=== PATIENT | male | born 1940 | race Two or more races ===

== ENCOUNTER 2022-03-28 16:13 | Inpatient (IN) | payer OTHER ==
[~2022-03-28] VITALS: Ht 175.3 cm; Wt 83.9 kg
[2022-03-28] MEDS ORDERED: CARVEDILOL6.25 MG PO (17:09)
[2022-03-28] MEDS ORDERED: JANUMET 50-1,01 EACH PO ×2 (17:10→17:13)
[2022-03-28] MEDS ORDERED: ZETIA10 MG PO (17:11)
[2022-03-28] MEDS ORDERED: JARDIANCE10 MG PO (17:12)
[2022-03-28] MEDS ORDERED: LEXAPRO5 MG PO (17:13)
[2022-03-28] MEDS ORDERED: ADULT LOW DOSE81 M1 PO (17:13)
[2022-03-28] MEDS ORDERED: NAMENDA10 MG PO (17:14)
[2022-03-28] MEDS ORDERED: LANTUS SOL100 UNIT/1 (17:14)
--- NOTE | 2022-03-28 17:15 | NUR ---
SE RECIBE PTE ALERTA Y ORIENTADO X3. PTE REFIERE DOLOR ABDOMINAL EN LADO DERECHO, QUE COMENZO HACE DOS WHITEHEAD MIENTRAS SE ENCONTRABA DE VIAJE. EL MISMO LLEGO HOY DE HUNTER VIAJE Y SE DIRIGIO DIRECTAMENTE A EZIO DE EMEGENCIA. SE TIANA S/V Y SE UBICA PTE EN AREA DE PASILLO PARA EVALUACION MEDICA.
--- NOTE | 2022-03-28 17:51 | NUR ---
DR LANGLEY EVALUA A PTE QUIEN [place] [facility]. MRS [place] ORIENTA A PTE SOBRE [place] MED[place], REALIZA MUESRAS DE LABORATORIO Y ADMINISTRACION DE MEDICAMENTOS DALLAS ORDEN MEDICA BAJO MEDIDAS ASEPTICAS. SE MANTIENE EN ESPERA DE CT Y RESULTADOS.
--- NOTE | 2022-03-29 00:15 | NUR ---
03/28/222299 SE RECIBE PTE MASCULINO ALERTA Y ORIENTADO EN LAS ELEUTERIO ESFERAS DEL TURNO ANTERIOR, CON BUEN PATRON RESPIRATORIO Y SIN QUEJA DE DOLOR. VENOPUNICON PATENTE, ZACH DE EDEMA Y ERITEMA RECIBIENDO TERAPIA DE IVFS 0.9NSS BAJANDO A 100ML/HR. PTE EN MICHELLE NIVEL MAS BAJO CON BARANDAS ELEVADAS Y FRENOS COLOCADOS POR SEGURIDAD. PENDIENTE CONSULTA CON MEDICINA INTERNA Y CIRUGIA YA NOTIFICADAS.
--- NOTE | 2022-03-29 07:27 | NUR ---
SE RECIBE PTE DEL TURNO ANTERIOR, ALERTA Y ORIENTADO EN JUVE ELEUTERIO ESFERAS, UBICADO EN MICHELLE, NIVEL MAS BAJO, HAWKINS DE IDENTIFICACION Y BARANDAS ELEVADAS POR PRECAUCION, EN COMPANIA DE FAMILAIR. SE OBSERVA CON BUEN PATRON RESPIRATORIO Y PIEL TIBIA AL TACTO. IV PATENTE Y ZACH DE EDEMA O ERITEMA CON 0.9% NSS @100ML/HR. PENDIENTE CONSULTA CON DR COTTON Y DR JACKSON. SE MANTIENE BAJO OBSERVACION.
== END 2022-04-06 22:53 | disposition home or self-care (01) | DRG 373 ==
LOC: ER 16:13 → SURG 03-29 16:22
PROVIDERS: ADMIT Internal Medicine; ATTEND Internal Medicine
PROC: BW21ZZZ Computerized Tomography (CT Scan) of Abdomen and Pelvis (ICD-10-PCS; principal; 2022-03-28)
PROC: BW21YZZ Computerized Tomography (CT Scan) of Abdomen and Pelvis using Other Contrast (ICD-10-PCS; 2022-04-01)
DX: K35.33 Acute appendicitis with perforation, localized peritonitis, and gangrene, with abscess (principal); R14.0 Abdominal distension (gaseous); I10 Essential (primary) hypertension; E11.9 Type 2 diabetes mellitus without complications; Z79.4 Long term (current) use of insulin; Z20.822 Contact with and (suspected) exposure to COVID-19